=== PATIENT | female | born 1945 | race Caucasian/White ===

== ENCOUNTER 2017-05-15 08:24 | Outpatient (CLI) | payer MEDICARE, OTHER ==
--- NOTE | 2017-05-15 10:12 | CT ---
CT ABDOMEN AND PELVIS WITH IV CONTRAST: DATE: 05/15/17. HISTORY: Followup follicular lymphoma. COMPARISON: None available. FINDINGS: There is partial visualization of bilateral breast prostheses. The lung bases are clear without evid ence of a pulmonary nodule. Mild degenerative changes are seen in the spine, but no lytic or sclerotic osseous lesions are identi fied. A 2.1 cm hypodense lesion is seen in the dome of the liver which demonstrates fluid attenuation most likely compatible with a hepatic cyst. An 8 mm nonobstructing calculus is seen in the mid portion left kidney. The spleen, pancreas, bilateral adrenal glands, right kidney, and opacified bowel demonstrate a elliott l CT appearance. There is evidence of hysterectomy. Urinary bladder is completely decompressed and not well evaluated on this exam. A few scattered colonic diverticula are present. No enlarged lymph nodes are seen by CT size criteria. No free fluid, fluid collection, or lymphadenopathy is seen in the abdomen or pelvis. IMPRESSION: 1. No evidence of lymphadenopathy. 2. Hepatic cysts. 3. Nonobstructing left renal calculus. 4. Hysterectomy. 5. Colonic diverticulosis. POS: [facility]
[2017-05-15] MEDS ORDERED: Iopamidol 370 76% 100 ML VIAL ONE (14:01)
== END 2017-05-15 08:25 | disposition home or self-care (01) ==
LOC: CT 08:24
PROVIDERS: ATTEND Internal Medicine Hematology & Oncology
DX: C82.03 Follicular lymphoma grade I, intra-abdominal lymph nodes (principal); K76.89 Other specified diseases of liver; N20.0 Calculus of kidney; K57.30 Diverticulosis of large intestine without perforation or abscess without bleeding; Z90.710 Acquired absence of both cervix and uterus
CPT/HCPCS: 74177

== ENCOUNTER 2018-04-13 07:13 | Outpatient (CLI) | payer MEDICARE, OTHER ==
--- NOTE | 2018-04-13 08:59 | CT ---
CT OF THE ABDOMEN AND PELVIS WITH IV CONTRAST: DATE: 04/13/2018. PROVIDED CLINICAL HISTORY: Follicular lymphoma. FINDINGS: The visualized lung bases are free of significant opacity. Simple right hepatic lobe cysts and nonobstructing calculus involving the left kidney are stable. Th e solid abdominal organs demonstrate an otherwise unremarkable CT appearance. There is no bowel dilatation, inflammatory fat stranding, free fluid, or lymph node enlargement appar ent. Minimal haziness of the central abdominal mesentery is redemonstrated, stable. There is a stab le nonenlarged lymph node present within the central small bowel mesentery. Sigmoid colonic divertic ulosis is redemonstrated. Occasional vascular calcifications are seen. The osseous structures demonstrate no concerning lytic or blastic lesions. IMPRESSION: Stable exam. POS: OFF
[2018-04-13] MEDS ORDERED: ISOVUE-370 76%-LOCM 1 ML ONE (10:41)
== END 2018-04-13 07:14 | disposition home or self-care (01) ==
LOC: BICCT 07:13
PROVIDERS: ATTEND Internal Medicine Hematology & Oncology
DX: C82.03 Follicular lymphoma grade I, intra-abdominal lymph nodes (principal)
CPT/HCPCS: 74177; 82565

== ENCOUNTER 2019-04-12 08:00 | Outpatient (CLI) | payer MEDICARE, OTHER ==
[2019-04-12] MEDS ORDERED: Iopamidol-370 76% 500 ML 1 ML ONE (09:25)
--- NOTE | 2019-04-12 10:48 | CT ---
CT ABDOMEN AND PELVIS PERFORMED WITH CONTRAST ENHANCEMENT: Date: 04/12/19 HISTORY: Follicular lymphoma Grade I. COMPARISON: 04/13/18. FINDINGS: The lung bases are clear. Bilateral breast augmentation is noted. Stable hypodensity within the right lobe of the liver is compatible with a cyst. Suggestion of some fatty change to liver. Spleen, pancr eas, and gallbladder regions appear unremarkable. Right and left adrenal glands, and right and left kidneys are normal in size. The left renal calculus is stable, measuring in the 6-7 mm range. There is some minimal haziness to the mesenteric fat, a st able finding as compared to the prior exam. There are some small mesenteric lymph nodes which appear stable. There is no significant periaortic or aortocaval lymphadenopathy. CT of pelvis was performed with contrast enhancement. There is no evidence of adenopathy, mass, or fr ee fluid. Sigmoid diverticulosis again noted. IMPRESSION: 1. Stable hepatic cyst and left renal calcification. 2. Suggestion of some fatty change to the liver. 3. Haziness to the mesenteric fat and small mesenteric lymph nodes are all stable. 4. Sigmoid diverticulosis. POS: [facility]
== END 2019-04-12 08:01 | disposition home or self-care (01) ==
LOC: BICCT 08:00
PROVIDERS: ATTEND Internal Medicine Hematology & Oncology
DX: C82.00 Follicular lymphoma grade I, unspecified site (principal); K76.89 Other specified diseases of liver; N28.89 Other specified disorders of kidney and ureter; K57.30 Diverticulosis of large intestine without perforation or abscess without bleeding
CPT/HCPCS: 74177; Q9967

== ENCOUNTER → 2019-11-26 | Outpatient (CLI) | payer MEDICARE, OTHER ==
[~2019-11-26] MED LIST: Iopamidol-370 76% 500 ML 1 ML ONE
--- NOTE | 2019-11-26 15:48 | CT ---
CT THORAX WITH CONTRAST CT ABDOMEN WITH CONTRAST CT PELVIS WITH CONTRAST: DATE: 11/26/2019 HISTORY: 73-year-old female with "follicular lymphoma grade 1, intra-abdominal lymph nodes. C 82.[address] Rolan Bhat diverticulitis by telephone voicemail message at 3:40 PM, then by [place] [employer] text at 3:41 PM, 11/26/2019. Dr. Paul notified Dr. [facility] director Rosaura Hoyt of the diverticulitis at 3:46 PM 2019. COMPARISON: 04/12/2019 CT abdomen and pelvis. No prior chest CT. TECHNIQUE: IV iodinated contrast media: Administered Oral contrast media: Administered Single phase scans of thorax, abdomen, and pelvis. FINDINGS: Lungs are essentially clear. No pleural effusion or pneumothorax. Multiple scattered mildly enlarged mediastinal lymph nodes. Minimally enlarged bilateral hilar lymph nodes. No thoracic aortic aneurysm. Approximately 2 cm cyst at dome of right lobe of liver. No other hepatic lesion. Diffusely low hepati c attenuation suggestive of fatty liver. Multiple mildly enlarged mesenteric lymph nodes. Minimal/mild haziness of mesentery. No major pathology of abdominal aorta, right kidney, adrenals, pancreas, spleen, or urinary bladder. Stable left renal calculus. No other abnormality of left kidney. No ascites or pneumoperitoneum. Sigmoid colonic diverticulosis. Deep in the posterior inferior aspect of the pelvic cavity, there is a region of fat stranding surrou nding a swollen diverticulum involving the distal sigmoid colon. No abscess. No small bowel dilation. IMPRESSION: 1) acute sigmoid colonic diverticulitis deep in the posterior inferior midline pelvic cavity. 2) no other interval change.
== END ==
LOC: BICCT 14:30
PROVIDERS: ATTEND Internal Medicine Hematology & Oncology
DX: C82.03 Follicular lymphoma grade I, intra-abdominal lymph nodes (principal); K57.32 Diverticulitis of large intestine without perforation or abscess without bleeding
CPT/HCPCS: 71260; 74177; Q9967

== ENCOUNTER 2021-12-07 08:35 | Outpatient (CLI) | payer MEDICARE ==
[~2021-12-07 08:35] MED LIST changes: +Iopamidol 370 76% 100 ML VIAL ONE; -Iopamidol-370 76% 500 ML 1 ML ONE
== END 2021-12-07 08:36 | disposition home or self-care (01) ==
LOC: BICCT 08:35
PROVIDERS: ATTEND Internal Medicine Hematology & Oncology
DX: C82.03 Follicular lymphoma grade I, intra-abdominal lymph nodes (principal)
CPT/HCPCS: 71260; 74177; 82565; Q9967

== ENCOUNTER 2022-07-09 16:39 | Emergency (ER) | payer MEDICARE, OTHER ==
[2022-07-09 18:06] LABS: #Eosinphils 0.1 thou/uL (0.0-0.7); #Lymphocytes 2.9 thou/uL (1.20-3.40); #Monocytes 0.5 thou/uL (0.11-0.59); #Neutrophils 3.6 thou/uL (1.40-6.50); %Basophils 0.5 % (0.0-1.0); %Eosinophils 1.9 % (0.0-10.0); %Lymphocytes 40.5 % (21.0-51.0); %Monocytes 6.8 % (0.0-10.0); %Neutrophils 50.2 % (42.0-75.0); Hemoglobin 14.9 g/dL (12.0-16.0); Mean Corpuscular HGB CONC 34.4 g/dL (32.0-36.0); Mean Corpuscular Hemoglobin 32.2 pg (27.0-31.0); Mean Corpuscular Volume 93.6 fl (78.0-98.0); Mean Platelet Volume 7.6 fL (7.4-10.4); Platelet Count 195 10x3/uL (130-400); RBC Distribution Width 11.6 % (11.5-14.5); Red Blood Cell (RBC) Count 4.63 mill/uL (4.20-5.40); White Blood Cell (WBC) Count 7.1 10x3/uL (4.8-10.8)
[2022-07-09 18:29] LABS: ALT (SGPT) 16 U/L (8-55); AST (SGOT) 17 U/L (5-34); Albumin 4.4 g/dL (3.4-4.8); Alkaline Phosphatase 54 U/L (40-110); Anion Gap 14 mmol/L (10-20); BUN (Urea Nitrogen) 15 mg/dL (9.8-20.1); Bilirubin, Total 0.5 mg/dL (0.2-1.2); Calc. Creatinine Clearance 0 mL/min (70-130); Carbon Dioxide 26 mmol/L (23-31); Chloride 103 mmol/L (98-107); Estimated GFR 50; Globulin 3.1 g/dL (2.4-3.5); Glucose 94 mg/dL (83-110); Potassium 4.4 mmol/L (3.5-5.1); Protein, Total 7.5 g/dL (5.8-8.1); Sodium 139 mmol/L (136-145)
[2022-07-09] MEDS ORDERED: Acetaminophen 500 MG TAB ONE ×2 (20:13→20:14)
== END 2022-07-09 20:27 | disposition home or self-care (01) ==
LOC: ERS 16:39
DX: M79.605 Pain in left leg (principal)
CPT/HCPCS: 36415; 80053; 85025

== ENCOUNTER 2022-07-17 14:47 | Outpatient (CLI) | payer MEDICARE, OTHER | END 2022-07-17 14:48 | disposition home or self-care (01) | LOC: BICRAD 14:47 | PROVIDERS: ATTEND Family Medicine | DX: M79.605 Pain in left leg (principal); M47.816 Spondylosis without myelopathy or radiculopathy, lumbar region; N20.0 Calculus of kidney; M25.78 Osteophyte, vertebrae | CPT/HCPCS: 72110 ==

== ENCOUNTER 2022-07-30 11:58 | Outpatient (CLI) | payer MEDICARE, OTHER | END 2022-07-30 11:59 | disposition home or self-care (01) | LOC: SCSMRI 11:58 | PROVIDERS: ATTEND Family Medicine | DX: M47.27 Other spondylosis with radiculopathy, lumbosacral region (principal); M47.816 Spondylosis without myelopathy or radiculopathy, lumbar region; M51.36 Other intervertebral disc degeneration, lumbar region; M89.38 Hypertrophy of bone, other site | CPT/HCPCS: 72158 ==

== ENCOUNTER 2022-10-11 22:14 | Observation (INO) | payer MEDICARE, OTHER ==
[2022-10-11 22:47] LABS: #Eosinphils 0.2 thou/uL (0.0-0.7); #Monocytes 0.5 thou/uL (0.11-0.59); #Neutrophils 2.4 thou/uL (1.40-6.50); %Basophils 0.6 % (0.0-1.0); %Eosinophils 3.2 % (0.0-10.0); Mean Corpuscular HGB CONC 33.8 g/dL (32.0-36.0); Mean Corpuscular Hemoglobin 31.3 pg (27.0-31.0); Mean Corpuscular Volume 92.6 fl (78.0-98.0); Mean Platelet Volume 9.7 fL (7.4-10.4); Platelet Count 203 10x3/uL (130-400); Red Blood Cell (RBC) Count 4.47 mill/uL (4.20-5.40); White Blood Cell (WBC) Count 6.6 10x3/uL (4.8-10.8)
[2022-10-11 23:03] LABS: INR-International Normal Ratio 0.9; PTT 25.4 sec (22.9-36.1); Prothrombin Time 12.4 sec (12.0-14.7)
[2022-10-11 23:04] LABS: D-Dimer Test 0.89 *mcg/mL (0.27-0.43)
[2022-10-11 23:10] LABS: ALT (SGPT) 19 U/L (8-55); AST (SGOT) 18 U/L (5-34); Albumin 4.2 g/dL (3.4-4.8); Alkaline Phosphatase 56 U/L (40-110); Anion Gap 16 mmol/L (10-20); BUN (Urea Nitrogen) 14 mg/dL (9.8-20.1); Bilirubin, Total 0.4 mg/dL (0.2-1.2); Calc. Creatinine Clearance 0 mL/min (70-130); Calcium 9.5 mg/dL (7.8-10.44); Carbon Dioxide 22 mmol/L (23-31); Chloride 107 mmol/L (98-107); Estimated GFR 47; Globulin 2.9 g/dL (2.4-3.5); Glucose 174 mg/dL (83-110); Protein, Total 7.1 g/dL (5.8-8.1); Sodium 141 mmol/L (136-145)
[2022-10-11 23:14] LABS: CK (CPK) 95 U/L (29-168); CRP (Inflammatory) Less than 0.50 mg/dL (= or < 0.5)
[2022-10-12 00:06] LABS: Bacteria/HPF None Seen HPF (None Seen); Bilirubin Negative (Negative); Blood, Urine Negative (Negative); Clarity Clear (Clear); Glucose, Urine (Dipstick) Normal (Negative); Ketone, Urine Negative (Negative); Leukocyte 25 Leu/uL (Negative); Nitrite Negative (Negative); Protein, Urine (Dipstick) Negative (Neg-Trace); RBC/HPF 0-3 HPF (0-3); Specific Gravity, Urine 1.008 (1.002-1.036); Squamous Epithelial None Seen HPF (0-3); Urobilinogen Normal mg/dL (Less than 2); WBC/HPF 0-3 HPF (0-3)
[2022-10-12] MEDS ORDERED: hydrALAZINE 20 MG/ML VIAL SLOW IVP PRN (01:40)
[2022-10-12] MEDS ORDERED: Ondansetron ODT 4 MG TAB PO PRN (01:40)
[2022-10-12] MEDS ORDERED: Acetaminophen 325 MG TAB PO PRN (01:40)
[2022-10-12] MEDS ORDERED: Acetaminophen 650 MG Suppository PR PRN (01:40)
[2022-10-12] MEDS ORDERED: Ondansetron PF 4 MG/2 ML Vial IVP PRN (01:40)
[2022-10-12 01:51] LABS: Lactic Acid 1.9 mmol/L (0.5-2.2)
[2022-10-12 02:13] LABS: Troponin I Less than 0.010 ng/mL (< 0.028)
[2022-10-12 02:18] VITALS: BMI 29.5
[2022-10-12 05:15] LABS: #Basophils 0.1 thou/uL (0.0-0.2); #Eosinphils 0.1 thou/uL (0.0-0.7); #Monocytes 0.6 thou/uL (0.11-0.59); #Neutrophils 2.7 thou/uL (1.40-6.50); %Basophils 0.8 % (0.0-1.0); %Eosinophils 1.9 % (0.0-10.0); %Lymphocytes 44.9 % (21.0-51.0); %Monocytes 9.8 % (0.0-10.0); %Neutrophils 42.4 % (42.0-75.0); Hemoglobin 12.9 g/dL (12.0-16.0); Mean Corpuscular HGB CONC 32.8 g/dL (32.0-36.0); Mean Corpuscular Hemoglobin 30.6 pg (27.0-31.0); Mean Corpuscular Volume 93.3 fl (78.0-98.0); Platelet Count 181 10x3/uL (130-400); RBC Distribution Width 13.1 % (11.5-14.5); Red Blood Cell (RBC) Count 4.21 mill/uL (4.20-5.40); White Blood Cell (WBC) Count 6.4 10x3/uL (4.8-10.8)
[2022-10-12 05:38] LABS: Anion Gap 12 mmol/L (10-20); BUN (Urea Nitrogen) 11 mg/dL (9.8-20.1); Calc. Creatinine Clearance 60 mL/min (70-130); Calcium 8.9 mg/dL (7.8-10.44); Carbon Dioxide 25 mmol/L (23-31); Cardiac Risk 4.5 (Less than 4.5); Chloride 107 mmol/L (98-107); Cholesterol 196 mg/dl (< 200 Desired); Estimated GFR 56; Glucose 96 mg/dL (83-110); HDL Cholesterol 44 mg/dL (>60 Neg Risk); LDL Cholesterol, Calculated 104 mg/dL; Potassium 3.8 mmol/L (3.5-5.1); Sodium 140 mmol/L (136-145); Triglycerides 240 mg/dL (Less than 150)
[2022-10-12 05:40] LABS: Troponin I Less than 0.010 ng/mL (< 0.028)
[2022-10-12] MEDS: Aspirin 81 mg Enteric Coated Tablet PO SCH (08:45)
[2022-10-12] MEDS ORDERED: Magnevist 469MG/ML 20 ML VIAL ONE (11:39)
[2022-10-12] MEDS ORDERED: Atorvastatin Calcium 40 MG TAB PO SCH (21:00)
[2022-10-13] MEDS: Aspirin 81 mg Enteric Coated Tablet PO SCH (09:02)
[2022-10-13 12:15] VITALS: BP 148/84; TEMP 98
== END 2022-10-13 12:45 | disposition home or self-care (01) ==
LOC: ERS 22:14 → NEURO 10-12 00:41
PROVIDERS: ADMIT Internal Medicine; ATTEND Internal Medicine
DX: G45.9 Transient cerebral ischemic attack, unspecified (principal); I12.9 Hypertensive chronic kidney disease with stage 1 through stage 4 chronic kidney disease, or unspecified chronic kidney disease; N18.30 Chronic kidney disease, stage 3 unspecified; M50.322 Other cervical disc degeneration at C5-C6 level; M48.02 Spinal stenosis, cervical region; Z85.72 Personal history of non-Hodgkin lymphomas; Z79.83 Long term (current) use of bisphosphonates; Z79.899 Other long term (current) drug therapy
CPT/HCPCS: 70450; 70544; 70551; 71045; 72156; 80048; 80061; 81003; 81015; 82550; 83605 ×2; 83880; 84484 ×3; 85025; 85379; 85610; 85730; 86140; 93005; 93306; 93880; G0378 ×3; 36415; 80053; 84443; A9579

== ENCOUNTER 2023-05-19 09:06 | Outpatient (CLI) | payer MEDICARE, OTHER ==
[2023-05-19] MEDS ORDERED: Iopamidol 370 76% 100 ML VIAL ONE (09:30)
== END 2023-05-19 09:07 | disposition home or self-care (01) ==
LOC: BICCT 09:06
PROVIDERS: ATTEND Internal Medicine Hematology & Oncology
DX: C82.03 Follicular lymphoma grade I, intra-abdominal lymph nodes (principal)
CPT/HCPCS: 71260; 74177